=== PATIENT | female | born 1975 | race African-American/Black ===

== ENCOUNTER 2019-11-18 14:42 | Outpatient (CLI) | payer BC, SELFPAY ==
--- NOTE | ~2019-11-18 | MM_ITS ---
EXAMINATION: MM screening bruce BI w nicole HISTORY: Screening mammogram TECHNIQUE: Craniocaudal and mediolateral oblique 3-D tomosynthesis images were obtained and synthetic 2-D images were generated. CAD analysis was submitted and interpreted. COMPARISON: No prior mammogram is available for comparison at this institution. BREAST PARENCHYMAL COMPOSITION: The breasts are heterogeneously dense, which may obscure small masses . FINDINGS: There are clustered indeterminate calcifications in the lower central aspect of the left br east. There is no mammographic evidence for malignancy in the right breast. IMPRESSION: 1. Clustered indeterminate left breast calcifications. 2. Magnification views are recommended. BI-RADS Category 0: Incomplete: Needs additional imaging evaluation. Reviewed, dictated and finalized at location A.
== END 2019-11-18 14:43 | disposition home or self-care (01) ==
PROVIDERS: PCP Physician Assistant; Visit Provider Physician Assistant
DX: Z12.31 Encounter for screening mammogram for malignant neoplasm of breast (principal); R92.8 Other abnormal and inconclusive findings on diagnostic imaging of breast
CPT/HCPCS: 77063; 77067

== ENCOUNTER 2019-12-08 12:26 | Outpatient (CLI) | payer BC, SELFPAY ==
--- NOTE | ~2019-12-08 | MM_ITS ---
EXAMINATION: MM diagnostic mammo unilat LT HISTORY: Microcalcifications TECHNIQUE: Additional 3-D tomosynthesis ML images of the left breast were performed and synthetic 2-D images were generated. Magnification views of the left breast. CAD analysis was submitted and inter preted. COMPARISON: 11/18/2019 bilateral digital screening mammogram FINDINGS: There are scattered benign calcifications. IMPRESSION: 1. No mammographic evidence of malignancy 2. Routine mammographic screening is recommended. BIRADS Category 2: Benign Reviewed, dictated and finalized at location A.
== END 2019-12-08 12:27 | disposition home or self-care (01) ==
PROVIDERS: PCP Physician Assistant; Visit Provider Physician Assistant
DX: R92.1 Mammographic calcification found on diagnostic imaging of breast (principal)
CPT/HCPCS: 77065

== ENCOUNTER 2022-03-08 16:03 | Outpatient (CLI) | payer BC, SELFPAY ==
--- NOTE | ~2022-03-08 | XR_ITS ---
XR chest 2V DATE: 03/08/2022 16:25 INDICATION: Tachycardia TECHNIQUE: PA and lateral views COMPARISON: None FINDINGS: There is prominent abnormal left posterior mediastinal soft tissue mass, measuring roughly 3.5-4 cm; CT thorax with IV contrast material is recommended. Normal heart size. No pulmonary infiltrate or consolidation, pleural effusion or pulmonary vascular c ongestion or pneumothorax is detected. Surgical clips, right upper quadrant, consistent with cholecystectomy. No suspicious osteolytic or osteoblastic lesions are noted. IMPRESSION: Roughly 3.5-4 cm left posterior mediastinal soft tissue mass; CT thorax with IV contrast material is recommended. Reviewed, dictated and finalized at location B. IMPRESSION: Roughly 3.5-4 cm left posterior mediastinal soft tissue mass; CT th orax with IV contrast material is recommended.
== END 2022-03-08 16:04 | disposition home or self-care (01) ==
LOC: ANHIMG 16:10
PROVIDERS: PCP Physician Assistant; Visit Provider Physician Assistant
DX: R00.0 Tachycardia, unspecified (principal)
CPT/HCPCS: 71046

== ENCOUNTER → 2022-03-16 09:17 | Outpatient (CLI) | payer BC, SELFPAY ==
--- NOTE | ~2022-03-16 | CT_ITS ---
EXAMINATION:CT diagnostic chest w con DATE: 03/16/2022 09:57 INDICATION: Mediastinal mass. TECHNIQUE: Computed tomography (CT) of the chest was performed with 75 mL Omnipaque 350 intravenous c ontrast. Automated exposure control and iterative reconstruction technique were employed. The dose-le ngth product (DLP) was 560.59 mGy-cm. COMPARISON: Chest 2 views 03/08/2022 FINDINGS: There is mild atelectasis in lingula. There are nodules in the thyroid measuring up to 13 m m, likely not clinically significant. There is a 3.9 x 2.7 cm mass in left perihilar region. No pleur al effusion. There is focal pleural thickening with punctate calcification in medial left posterior c ostophrenic angle. There are no pathologically enlarged lymph nodes. The heart size is normal. No per icardial effusion. There is mild thoracic spondylosis. IMPRESSION: 1. 3.9 cm left perihilar mass. The differential diagnosis includes bronchogenic cyst, fibrous tumor o f the pleura, and primary bronchogenic carcinoma. Consider chest MRI without and with contrast. 2. Focal pleural thickening in medial left posterior costophrenic angle, which may be benign or malig nant. Consider PET/CT. Reviewed, dictated and finalized at location A. IMPRESSION: 1. 3.9 cm left perihilar mass. The differential diagnosis includes bronchogenic cyst, fibrous tumor of the pleura, and primary bronchogenic carcinoma. Conside r chest MRI without and with contrast. 2. Focal pleural thickening in medial left posterior costophrenic angle, which may be benign or malignant. Consider PET/CT.
[2022-03-16 09:45] LABS: Estimated Glomerular Filt Rate > 60
== END ==
PROVIDERS: PCP Physician Assistant; Visit Provider Physician Assistant
DX: R22.2 Localized swelling, mass and lump, trunk (principal); M47.814 Spondylosis without myelopathy or radiculopathy, thoracic region
CPT/HCPCS: 71260; Q9967

== ENCOUNTER 2023-07-26 17:50 | Outpatient (CLI) | payer OTHER, BC, SELFPAY ==
--- NOTE | ~2023-07-26 | XR_ITS ---
EXAMINATION: XR chest 2V DATE: 07/26/2023 20:28 INDICATION: Decreased breath sounds. TECHNIQUE: Frontal and lateral views of the chest were obtained. COMPARISON: Chest 2 views 03/08/2022, chest CT 03/16/2022 FINDINGS: There is a left perihilar mass. No pleural effusion or pneumothorax. The heart size is norm al. IMPRESSION: 1. Left perihilar mass, stable from 03/08/2022. The differential diagnosis includes bronchogenic cyst and fibrous tumor of the pleura. Reviewed, dictated and finalized at location E. [employer] IMPRESSION: 1. Left perihilar mass, stable from 03/08/2022. The differential diagnosis inclu rafi bronchogenic cyst and fibrous tumor of the pleura.
== END 2023-07-26 17:51 | disposition home or self-care (01) ==
LOC: ANHIMG 17:53
PROVIDERS: PCP Physician Assistant; Visit Provider Physician Assistant
DX: R09.89 Other specified symptoms and signs involving the circulatory and respiratory systems (principal); R91.8 Other nonspecific abnormal finding of lung field
CPT/HCPCS: 71046

== ENCOUNTER 2023-10-15 13:43 | Outpatient (CLI) | payer OTHER, BC, SELFPAY ==
--- NOTE | 2023-10-15 17:08 | WPDPFTINT ---
PFT Procedure Performed PFT Procedure Performed Spirometry with Pre/Post Bronchodilator Diffusing Cap (DLCO) Flow Vol Loop PFT Interpretation This is a pulmonary function test with pre and post-bronchodilator spirometry and diffusing capacity. The test was performed and results interpreted in accordance with the 2019 and 2005 ATS/ERS Task Force guidelines respectively using the Global Lung Function Initiative-2012 reference equations. Patient demonstrated good effort and cooperation. Reproducibility criteria were met. The quality of the pre bronchodilator spirometry maneuver was Grade A and post bronchodilator spirometry maneuver was Grade A. Of note, patient has struggled with reproducibility of plethysmography and was unable to perform the testing. Findings: Spirometry: The contour the inspiratory and expiratory flow tracing are normal. the pre bronchodilator FVC is 1.55 L, 62% predicted. The pre bronchodilator FEV1 is 1.19 L, 58% predicted. The pre bronchodilator FEV1: FVC ratio 77%. The post bronchodilator FVC is 1.54 L, representing 1% decrease. The post bronchodilator FEV1 is 1.30 L, representing a 9% increase. The post bronchodilator FEV1: FVC ratio is 84%. Diffusing capacity: The diffusing capacity unadjusted for hemoglobin and carboxyhemoglobin is 12.9, 62% predicted. The diffusing capacity adjusted for alveolar volume is 6.11, 126% predicted. Impression: There is a a moderately severe decrease in the FEV 1 and FVC with a normal expiratory flow tracing and a normal FEV1: FVC ratio. This is consistent with a restrictive abnormality, however the patient was unable to perform plethysmography to measure lung volumes to confirm a restrictive abnormality. There is no significant improvement after inhaling a single dose of albuterol. The diffusing capacity unadjusted for hemoglobin and carboxyhemoglobin is mildly decreased and normalizes when adjusted for alveolar volume. There are no prior studies for comparison.
== END 2023-10-15 13:44 | disposition home or self-care (01) ==
PROVIDERS: PCP Physician Assistant; Visit Provider Physician Assistant
DX: Z01.818 Encounter for other preprocedural examination (principal); R94.2 Abnormal results of pulmonary function studies
CPT/HCPCS: 94060; 94726; 94729

== ENCOUNTER 2023-11-06 08:50 | Outpatient (CLI) | payer OTHER, BC, SELFPAY ==
[2023-11-13 16:03] VITALS: BMI 43.0
--- NOTE | 2023-11-13 16:03 | WPDHOMESLEEP ---
Sleep Study - Home Unattended Date of Study: 11/06/23 Ordering Provider: Fannie Anand, YOHANNES Interpreting Provider: Queenie Bob, DO Home Sleep Study Type: Watch PAT Height: 1.5 m Weight: 96.615 kg Body Mass Index: 43.0 Neck Circumference (inches): 17 [place]: 6 Reason for Sleep Study Difficulty sleeping Sleep History The patient is a 48-year-old female with hypertension, congestive heart failure, diabetes, diabetic nephropathy, insomnia and obstructive airway disease that had a sleep study ordered by her primary care for evaluation sleep apnea. The patient denies awakening from sleep short of breath. She denies awakening at night with heartburn, belching or cough. She rarely snores and is rarely loud enough that others complain. She occasionally has trouble sleeping when she has a cold. She denies waking up gasping for air throughout the night. She denies having breathing problems at night observed by herself or others. She occasionally sweats excessively at night. She occasionally has heart palpitations or irregular heartbeats during the night. She rarely falls asleep during the day but never while driving. She denies sleep paralysis, cataplexy and hypnagogic / hypnopompic hallucinations. She denies having trouble at school or work due to sleepiness. She denies feeling afraid of going to sleep. She denies having nightmares. She denies remembering her dreams. She denies having thoughts racing through her mind. She denies feeling sad, depressed or anxious. She denies having muscular tension. She denies noticing parts of her body jerk. She denies kicking during the night. She occasionally has crawling and aching feelings in her legs and occasionally has leg pain during the night. She occasionally grinds her teeth during sleep but never awakens with morning jaw pain. She is occasionally bothered by pain during the day and occasionally awakened by pain during the night. She occasionally wakes up feeling stiff in the morning. She occasionally wakes up with sore or achy muscles. She occasionally wakes up with pain in the neck, spine and other joints. She goes to bed at 2:00 a.m. on weekdays and at 3:00 a.m. on the weekends. It takes her 45 minutes to fall asleep. She wakes up twice throughout the night for unknown reasons. When she awakens, she will get on her phone or per a. It takes her 1 hour to fall back asleep. She wakes up at 10:00 a.m. on weekdays and weekends. She typically gets 7 hours of sleep per night. She will stay in bed for 1 hour after waking up in the morning. She currently lives with her . She denies consuming any caffeinated beverages within 2 hours of bedtime. She denies engaging in physical exercise before bedtime. She will read and watch television before falling asleep. She denies taking naps in the afternoon or the evening. She denies consuming any caffeinated beverages throughout the day. She denies tobacco, alcohol and recreational drug use. Sleep Procedure The sleep study was completed using [employer] a technically adequate device with seven channels: peripheral arterial tone, actigraphy, body position, snore, respiratory movement, pulse oximetry, sleep staging, and heart rate. Prior to using the device, the patient received verbal and written instructions for its application and was provided with the help desk phone number for additional telephonic instruction with 24-hour availability of qualified personnel to answer questions.? The study was scored using CMS guidelines.? Sleep Architecture The total recording time is 6 hrs, 54 min. The total sleep time is 5 hrs, 39 min. Sleep latency is 18 minutes. REM latency is 76 minutes. The patient had 5 episodes of waking. Sleep architecture shows 23.9% deep sleep, 45.6% light sleep, and (as % Total Sleep Time) showed NREM (Light 45.6%; Deep 23.9%), and a 30.5% stage REM. The patient spent 18.3% of total sleep time in the supine position. Slee
== END 2023-11-07 07:30 | disposition home or self-care (01) ==
LOC: ANHCSM 08:51
PROVIDERS: PCP Physician Assistant; Visit Provider Physician Assistant
DX: G47.33 Obstructive sleep apnea (adult) (pediatric) (principal)
CPT/HCPCS: 95800

== ENCOUNTER 2023-12-06 09:27 | Outpatient (CLI) | payer OTHER, BC, SELFPAY ==
--- NOTE | ~2023-12-06 | XR_ITS ---
3 VIEWS LUMBAR SPINE Ordering provider: Fannie Anand, YOHANNES History: . LUMBAGO W SCIATICA, RT SIDE LOW BACK PAIN X3MO, NO INJ . Comparison: None. FINDINGS: VERTEBRAL BODIES: No visible fracture or subluxation. DISK SPACES: Normal. SOFT TISSUES: Normal. IMPRESSION: No acute osseous abnormality lumbar spine. Reviewed, dictated and finalized at location A.
== END 2023-12-06 09:28 | disposition home or self-care (01) ==
PROVIDERS: PCP Physician Assistant; Visit Provider Physician Assistant
DX: M54.41 Lumbago with sciatica, right side (principal)
CPT/HCPCS: 72100

== ENCOUNTER 2023-12-25 13:01 | Outpatient (CLI) | payer OTHER, BC, SELFPAY ==
--- NOTE | ~2023-12-25 | MR_ITS ---
EXAMINATION: MR chest wo/w con DATE: 12/25/2023 15:30 INDICATION: Mediastinal mass TECHNIQUE: Magnetic resonance imaging (MRI) of the chest was performed without and with 20 mL Multiha nce intravenous contrast. Sequences included axial T1-weighted FSE, axial T2-weighted FS FSE, coronal T1-weighted FSE, coronal T2-weighted FS FSE, sagittal T1-weighted FSE and sagittal T2-weighted FS FS E. Precontrast axial T1-weighted FS FSE and post contrast axial, sagittal and coronal T1-weighted FS FSE were also obtained. COMPARISON: CT dated 03/16/2022 FINDINGS: No significant interval change in size of a 4.0 x 2.7 x 3.6 cm mediastinal mass situated posterior to the left hilum along the right side of the descending thoracic aorta. This measured 3.8 x 2.7 x 3.[address] from 2 years prior. 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 No pathologically enlarged thoracic lymphadenopat hy or other abnormal masses or fluid collections identified. Mild cardiomegaly. No pericardial effusi on. Mild thoracic dextrocurvature. Normal bone marrow signal throughout. IMPRESSION: 1. 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 Reviewed, dictated and finalized at location A. IMPRESSION: 1. 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
== END 2023-12-25 13:02 | disposition home or self-care (01) ==
LOC: ANHIMG 13:08
PROVIDERS: PCP Physician Assistant; Visit Provider Physician Assistant
DX: R22.2 Localized swelling, mass and lump, trunk (principal)
CPT/HCPCS: 71552; A9577